=== PATIENT | male | born 1970 | race Caucasian/White ===

== ENCOUNTER 2017-12-19 12:10 | Inpatient (IN) | payer OTHER ==
[~2017-12-19] VITALS: Ht 195.6 cm; Wt 108.9 kg
[2017-12-19] MEDS ORDERED: LAMOTRIGINE100 MG PO (12:33)
[2017-12-19] MEDS ORDERED: TEMAZEPAM30 MG PO (12:34)
[2017-12-19] MEDS ORDERED: SERTRALINE HCL100 MG PO (12:34)
[2017-12-19] MEDS ORDERED: COZAAR100 MG PO (12:34)
== END 2017-12-28 16:09 | disposition home or self-care (01) | DRG 331 ==
LOC: RECOVERY 12-20 14:00 → SURG 12-25 07:29 → O/R 12-25 07:29 → SURG 12-25 13:54 → RECOVERY 12-26 14:00 → SURG 12-28 16:09
PROVIDERS: Colon & Rectal Surgery
PROC: 0DTP4ZZ Resection of Rectum, Percutaneous Endoscopic Approach (ICD-10-PCS; 2017-12-25)
PROC: 0DJD8ZZ Inspection of Lower Intestinal Tract, Via Natural or Artificial Opening Endoscopic (ICD-10-PCS; 2017-12-25)
PROC: 0DTN4ZZ Resection of Sigmoid Colon, Percutaneous Endoscopic Approach (ICD-10-PCS; principal; 2017-12-25 14:00)
PROC: 3E0F7GC Introduction of Other Therapeutic Substance into Respiratory Tract, Via Natural or Artificial Opening (ICD-10-PCS; 2017-12-26)
DX: K57.32 Diverticulitis of large intestine without perforation or abscess without bleeding (principal); F17.210 Nicotine dependence, cigarettes, uncomplicated; I11.9 Hypertensive heart disease without heart failure